=== PATIENT | male | born 1975 | race American Indian/Alaskan Native ===

== ENCOUNTER 2019-06-25 13:09 | Emergency (ER) | payer BC, OTHER ==
[2019-06-25] MEDS ORDERED: Ketorolac 60 MG/2 ML SDV IM ONE (13:55)
[2019-06-25] MEDS ORDERED: Cyclobenzaprine 10 MG Tab PO ONE (13:55)
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
== END 2019-06-25 14:41 | disposition home or self-care (01) ==
LOC: JP.ED 13:09
DX: M62.838 Other muscle spasm (principal); I10 Essential (primary) hypertension; E11.9 Type 2 diabetes mellitus without complications; Z88.8 Allergy status to other drugs, medicaments and biological substances; Z79.899 Other long term (current) drug therapy; Z79.84 Long term (current) use of oral hypoglycemic drugs; Z87.891 Personal history of nicotine dependence
CPT/HCPCS: 96372; 99283; A9270; J1885